=== PATIENT | female | born 1935 | race Asian ===

== ENCOUNTER 2016-09-04 22:57 | Inpatient (IN) | payer OTHER ==
[~2016-09-04] VITALS: Ht 154.9 cm; Wt 63.1 kg
--- NOTE | 2016-09-04 23:12 | Emergency Room Report ---
History of Present Illness General Chief Complaint: Dyspnea/Respdistress Source: Patient, EMS Present Illness HPI This is a 81-year-old female with history hypertension. She presents with chief shortness of breath the last 5 days. Worse with exertion. Worse with lying flat. Worse tonight. Clinically, she has pedal edema. But worse the last few days. Denies any chest pain. Per EMS, blood pressure was high. They gave her a breathing treatment, nitroglycerin, and oxygen. Never had this problem before. Allergies: Coded Allergies: No Known Allergies (Unverified , 09/04/16) Patient History Past Medical History: see triage record, old chart reviewed, HTN Past Surgical History: other Pertinent Family History: other Social History: Denies: smoking Now: No Immunizations: other Reviewed Nursing Documentation: PMH: Agreed, PSxH: Agreed Nursing Documentation-PMH Hx Hypertension: Yes Hx Asthma: Yes Review of Systems Eye: Denies: blurred vision, eye pain ENT: Denies: ear pain, nose congestion, throat swelling Respiratory: Reports: BERMUDEZ, shortness of breath, Denies: cough Cardiovascular: Denies: chest pain, palpitations Gastrointestinal: Denies: abdominal pain, diarrhea, nausea, vomiting Musculoskeletal: Denies: back pain, joint pain Skin: Denies: rash Neurological: Denies: headache, numbness Endocrine: Denies: increased thirst, increased urine Hematologic/Lymphatic: Denies: easy bruising All Other Systems: negative except mentioned in HPI Physical Exam Vital Signs Date Time Temp Pulse Resp B/P Pulse Ox O2 Delivery O2 Flow Rate FiO2 09/04/16 22:56 99.3 117 24 135/97 92 Room Air vitals with tachycardia and hypoxia Sp02 EP Interpretation: reviewed, abnormal General Appearance: mild distress Head: normocephalic, atraumatic Eyes: bilateral eye EOMI, bilateral eye PERRL ENT: hearing grossly normal, normal pharynx Neck: full range of motion, supple, no meningismus Respiratory: chest non-tender, decreased breath sounds, rales Cardiovascular #1: regular rate, rhythm, no murmur, tachycardia Gastrointestinal: normal bowel sounds, non tender, no mass, no organomegaly, no bruit, non-distended Musculoskeletal: back normal, normal range of motion, swelling - 4+ pitting edema Neurologic: alert, oriented x3 Psychiatric: mood/affect normal Skin: warm/dry Procedures Critical Care Time Critical Care Time Critical care is mandated in this patient who presented with NSTEMI and chf. Patient require my urgent intervention to attenuate the risks of metabolic collapse which may lead to cardiovascular collapse and . Critical care time is 35 minutes excluding any reportable procedure. Critical care time included evaluation, multiple reevaluation, looking at old charts, interpreting laboratory and diagnostic data, discussing case with patient and family and consultants, and charting. Medical Decision Making Diagnostic Impression: Primary Impression: NSTEMI, initial episode of care Additional Impressions: CHF (congestive heart failure) Qualified Codes: I50.9 - Heart failure, unspecified Hyperglycemia due to type 2 diabetes mellitus Qualified Codes: E11.65 - Type 2 diabetes mellitus with hyperglycemia Anemia Qualified Codes: D64.9 - Anemia, unspecified Hyponatremia Proteinuria Hypertension Qualified Codes: I10 - Essential (primary) hypertension ER Course Patient presents with acute CHF and fluid overloaded secondary to non-STEMI. No arrhythmia. Blood sugar is slightly elevated. According to EMS, blood pressure was systolic in the 170s. It is better now. Patient received nitroglycerin by EMS. I gave her aspirin, Lovenox, BRISA inhibitor, and Lasix here. She diuresed about a liter and felt better. At this point in time, she is unstable for transfer. We'll admit here for further workup. I discussed the case with Dr. Mcgraw who is covering for . Laboratory Tests Test 09/04/16 23:11 09/04/16 23:42 White Blood Count 8.4 K/UL (4.8-10.8) Red Blood Count 3.85 M/UL (4.20-5.40) L Hemoglobin 10.8 G/DL (12.0-16.0) L Hematocrit 33.7 % (37.0-47.0) L Mean Corpuscular Volume 88 FL (80-99) Mean Corpuscular Hemoglobin 28.0 PG (27.0-31.0) Mean Corpuscular Hemoglobin Concent 31.9 G/DL (32.0-36.0) L Red Cell Distribution Width 13.0 % (11.6-14.8) Platelet Count 156 K/UL (150-450) Mean Platelet Volume 6.2 FL (6.5-10.1) L Neutrophils (%) (Auto) 78.8 % (45.0-75.0) H Lymphocytes (%) (Auto) 11.8 % (20.0-45.0) L Monocytes (%) (Auto) 7.3 % (1.0-10.0) Eosinophils (%) (Auto) 1.2 % (0.0-3.0) Basophils (%) (Auto) 0.9 % (0.0-2.0) Prothrombin Time 12.0 SEC (9.30-11.50) H Prothromb Time International Ratio 1.2 (0.9-1.1) H Activated Partial Thromboplast Time 22 SEC (23-33) L Sodium Level 126 mEQ/L (135-145) L Potassium Level 4.3 mEQ/L (3.4-4.9) Chloride Level 88 mEQ/L (98-107) L Carbon Dioxide Level 19 mEQ/L (20-30) L Anion Gap 19 (5-15) H Blood Urea Nitrogen 20 mg/dL (7-23) Creatinine 1.0 mg/dL (0.5-0.9) H Estimat Glomerular Filtration Rate mL/min (>60) Glucose Level 182 mg/dL (74-106) H Calcium Level 8.4 mg/dL (8.6-10.2) L Total Bilirubin 0.4 mg/dL (0.0-1.2) Aspartate Amino Transf (AST/SGOT) 32 U/L (5-40) Alanine Aminotransferase (ALT/SGPT) 37 U/L (3-33) H Alkaline Phosphatase 58 U/L (35-104) Total Creatine Kinase 105 U/L (26-140) Creatine Kinase MB 9.9 ng/mL (< 3.8) H Creatine Kinase MB Relative Index 9.4 Troponin I 0.67 ng/mL (<=0.30) *H Pro-B-Type Natriuretic Peptide 48933 pg/mL (0-450) H Total Protein 6.2 g/dL (6.6-8.7) L Albumin 3.4 g/dL (3.5-5.2) L Globulin 2.8 g/dL Albumin/Globulin Ratio 1.2 (1.0-2.7) Urine Color Yellow Urine Appearance Clear Urine pH 6 (4.5-8.0) Urine Specific Martin 1.015 (1.005-1.035) Urine Protein 3+ (NEGATIVE) H Urine Glucose (UA) 1+ (NEGATIVE) H Urine Ketones Negative (NEGATIVE) Urine Occult Blood 2+ (NEGATIVE) H Urine Nitrite Negative (NEGATIVE) Urine Bilirubin Negative (NEGATIVE) Urine Urobilinogen Normal MG/DL (0.0-1.0) Urine Leukocyte Esterase Negative (NEGATIVE) Urine RBC 5-10 /HPF (0 - 2) H Urine WBC 0-2 /HPF (0 - 2) Urine Squamous Epithelial Cells Few /LPF (NONE/OCC) Urine Bacteria None /HPF (NONE) Lab Results Impression labs with elevated BNP and troponin EKG Diagnostic Results Rate: normal, tachycardiac Rhythm: NSR ST Segments: other - NSST changes Rhythm Strip Diag. Results EP Interpretation: yes Rate: 100 Rhythm: NSR, no PVC's, no ectopy Chest X-Ray Diagnostic Results EP Interpretation: Yes Findings: no consolidation, no pneumothorax, other - CM with chf Number of Views: 1 Last Vital Signs Date Time Temp Pulse Resp B/P Pulse Ox O2 Delivery O2 Flow Rate FiO2 09/04/16 22:56 99.3 117 24 135/97 92 Room Air Status: improved Disposition: ADMITTED INPATIENT Condition: Serious DEBBY BAE M.D. Sep 04, 2016 23:12
[2016-09-04 23:13] VITALS: BP 135/97
[2016-09-04] MEDS ORDERED: Enalaprilat 2.5mg/2ml Inj IV ONE (23:15)
[2016-09-04] MEDS ORDERED: Aspirin Baby 81mg ORAL ONE (23:15)
[2016-09-04] MEDS ORDERED: Enalaprilat 1.25mg/ml Inj IV ONE (23:15)
[2016-09-04 23:28] VITALS: BP 127/82
[2016-09-04 23:35] LABS: INR 1.2 (0.9-1.1)
[2016-09-04 23:44] LABS: BASOPHILS % (AUTO) 0.9 % (0.0-2.0); EOSINOPHILS % (AUTO) 1.2 % (0.0-3.0); LYMPHOCYTES % (AUTO) 11.8 % (20.0-45.0); MEAN CORPUSCULAR HGB CONC 31.9 G/DL (32.0-36.0); MEAN CORPUSCULAR VOLUME 88 FL (80-99); MEAN PLATELET VOLUME 6.2 FL (6.5-10.1); MONOCYTES % (AUTO) 7.3 % (1.0-10.0); NEUTROPHILS % (AUTO) 78.8 % (45.0-75.0); PLATELET COUNT 156 K/UL (150-450); RED BLOOD COUNT 3.85 M/UL (4.20-5.40); WHITE BLOOD COUNT 8.4 K/UL (4.8-10.8)
[2016-09-04 23:45] LABS: ALANINE AMINOTRANSFERASE 37 U/L (3-33); ALBUMIN/GLOBULIN RATIO 1.2 (1.0-2.7); ANION GAP 19 (5-15); ASPARTATE AMINO TRANSFERASE 32 U/L (5-40); CALCIUM 8.4 mg/dL (8.6-10.2); CARBON DIOXIDE 19 mEQ/L (20-30); CHLORIDE 88 mEQ/L (98-107); HEMOLYSIS 18; POTASSIUM 4.3 mEQ/L (3.4-4.9); SODIUM 126 mEQ/L (135-145); TOTAL PROTEIN 6.2 g/dL (6.6-8.7)
[2016-09-04 23:47] LABS: TROPONIN I 0.67 ng/mL (<=0.30)
[2016-09-04 23:56] LABS: CKMB 9.9 ng/mL (< 3.8)
[2016-09-04 23:58] LABS: APPEARANCE,URINE CLEAR; KETONES,URINE NEGATIVE (NEGATIVE); LEUKOCYTE ESTERASE ,URINE NEGATIVE (NEGATIVE); NITRITE,URINE NEGATIVE (NEGATIVE); PH,URINE 6 (4.5-8.0); PROTEIN,URINE 3+ (NEGATIVE); UROBILINOGEN,URINE NORMAL MG/DL (0.0-1.0)
[2016-09-05] VITALS (12 sets, daily range): BP systolic 96–130; BP diastolic 65–86
[2016-09-05] MEDS ORDERED: Enoxaparin 60mg Inj SUBQ ONE
[2016-09-05 00:24] LABS: SQUAMOUS EPITHELIAL CELL,UR FEW /LPF (NONE/OCC); WBC,URINE 0-2 /HPF (0 - 2)
[2016-09-05] MEDS ORDERED: ALBUTEROL2.5 MG/3 M INH (01:10)
[2016-09-05] MEDS: NovoLOG Insulin Flexpen SUBQ SCH ×4 (06:21→21:50)
[2016-09-05] MEDS: Metoprolol 25mg tab ORAL SCH ×2 (08:51→19:07)
[2016-09-05] MEDS: Enoxaparin 60mg Inj SUBQ SCH ×2 (08:52→21:49)
[2016-09-05 10:30] LABS: ALANINE AMINOTRANSFERASE 37 U/L (3-33); ALBUMIN/GLOBULIN RATIO 1.3 (1.0-2.7); ANION GAP 14 (5-15); ASPARTATE AMINO TRANSFERASE 31 U/L (5-40); CALCIUM 8.7 mg/dL (8.6-10.2); CARBON DIOXIDE 27 mEQ/L (20-30); CHLORIDE 90 mEQ/L (98-107); CREATININE 1.1 mg/dL (0.5-0.9); HEMOLYSIS 4; POTASSIUM 5.4 mEQ/L (3.4-4.9); SODIUM 131 mEQ/L (135-145); TOTAL PROTEIN 6.5 g/dL (6.6-8.7)
[2016-09-05 10:43] LABS: TROPONIN I 2.58 ng/mL (<=0.30)
--- NOTE | 2016-09-05 11:15 | Diagnostic Imaging Report ---
Indication: SOB Technique: One view of the chest Comparison: none Findings: There are bilateral pleural effusions, large. There is bilateral interstitial edema. The heart borders are obscured. Impression: Findings are compatible with congestive heart failure with large bilateral pleural effusions
[2016-09-05] MEDS: Nitroglycerin 2% oint pkt TOPIC SCH ×2 (14:15→19:07)
--- NOTE | 2016-09-05 15:04 | History & Physical ---
History and Physical History & Physicial dict AMI CHF DM bronchiectasis LVH, diastolic dysfcn pulm HTN lasix asa metoprolol cardiology called disc w briefcase sewer re transfer for coronary eval LINNEA Acosta Sep 05, 2016 15:04
[2016-09-05] MEDS ORDERED: Norco 10mg/325mg tab ORAL PRN (19:30)
--- NOTE | 2016-09-05 20:18 | History and Physical Report ---
DATE OF ADMISSION: 09/05/2016 CHIEF COMPLAINT: Short of breath. HISTORY OF PRESENT ILLNESS: The patient states she has been short of breath for about 5 days. It is worse with exertion and worse lying down flat. She has developed increasing edema over the past few weeks. She called her primary physician and was given albuterol. She has a nebulizer at home, which she uses for bronchiectasis. She has some chronic cough with sputum, but that was not worse recently. She had no chest pain. She does have a history of borderline hypertension, but no other risk factors for coronary disease. She is a nonsmoker. PAST MEDICAL HISTORY: Bronchiectasis and borderline hypertension. She does have a history of borderline diabetes, but is on no medication. ALLERGIES: None. MEDICATION: Albuterol. SOCIAL HISTORY: She does not drink or smoke. REVIEW OF SYSTEMS: Otherwise unremarkable. PHYSICAL EXAMINATION: GENERAL: The patient is alert and responds appropriately. VITAL SIGNS: Stable. She is well developed and well nourished. HEENT: The head is normocephalic. NECK: No jugular venous distention. CHEST: Few rales. CARDIAC: Rhythm is regular without murmur or gallop. ABDOMEN: Soft and nontender. Liver and spleen not enlarged. No ascites. EXTREMITIES: No clubbing or cyanosis. 3+ edema noted. NEUROLOGIC: No focal deficits. Cranial nerves are intact. LABORATORY STUDIES: Show the sodium of 126, BUN 20, creatinine 1.0. Blood sugar 182. CK-MB was high. Troponin was high at 0.67. Natriuretic peptide 46,700. On follow up, laboratory tests showed the troponin was 2.58 and sodium 131. Blood sugar 202. Urinalysis is negative. Coagulation parameters are normal. Hemogram showed some mild anemia with hemoglobin 10.8. IMPRESSIONS: 1. Acute myocardial infarction with congestive heart failure. 2. Congestive heart failure with diastolic dysfunction. 3. Pulmonary hypertension. 4. Diabetes not on treatment. PLAN: The patient was given diuretics and aspirin as well as a beta blanquita. Cardiology consultation has been requested. I believe she should be transferred as soon as possible for coronary evaluation. She is not a candidate for thrombolytic therapy given the long duration of her symptoms. Art Arroyo M.D. DR: /helena JOB#: [id number] CC: Art Arroyo M.D.; Fax#: [phone]
[2016-09-05] MEDS ORDERED: Nitroglycerin 50mg/250ml btl 250 ML IV SCH (22:00)
[2016-09-05] MEDS ORDERED: DuoNeb 0.5-3(2.5)mg/3ml neb HHN SCH (23:00)
[2016-09-06] VITALS (45 sets, daily range): BP systolic 91–119; BP diastolic 56–82
--- NOTE | 2016-09-06 00:48 | Consultation ---
DATE OF CONSULTATION: 09/05/2016 CARDIOLOGY CONSULTATION: CONSULTING PHYSICIAN: Shivam Wiggins M.D. REQUESTING PHYSICIAN: Art Arroyo M.D. REASON FOR CONSULTATION: Acute myocardial infarction. HISTORY OF PRESENT ILLNESS: This is a 81-year-old [place] female, who presented to the emergency room last evening with five days of progressive shortness of breath, chest tightness, and general malaise. Her initial troponin level was elevated at 0.67. She was noted to have radiographic evidence of congestive heart failure. Laboratory has evidence of an elevated natriuretic peptide assay. Pleural effusions were noted as well. The patient was admitted to the cardiac observation unit. This morning, her troponin level increased to 2.58 and the patient's symptoms have continued prompting this consultation. In addition, the patient had an echocardiogram done this morning revealing moderate pulmonary hypertension, pleural effusion, ejection fraction 50%, moderate mitral, and moderate tricuspid regurgitation. The patient is unaware of any prior history of myocardial infarction. PAST MEDICAL HISTORY: Hypertension, bronchiectasis, and type 2 diabetes mellitus. ALLERGIES: None. MEDICATIONS: Prior to admission, albuterol. SOCIAL HISTORY: Negative for smoking and alcohol use. REVIEW OF SYSTEMS: Otherwise, unremarkable. PHYSICAL EXAMINATION: GENERAL: She is in mild respiratory distress. VITAL SIGNS: Blood pressure is 114/82, pulse 80, respiratory rate 16, and afebrile. NECK: Jugular venous pressure is elevated. LUNGS: Diminished breath sounds and scattered rales. CARDIAC: Regular rhythm and rate. Normal S1 and S2. A 1/6 early systolic apical murmur. Point of maximum impulse of heart is displaced. ABDOMEN: Soft and nontender. EXTREMITIES: With 1+ dependent edema bilaterally. NEUROLOGIC: Nonfocal. DIAGNOSTIC DATA: EKG reveals low voltage and nonspecific ST-T wave changes. IMPRESSION: 1. Acute myocardial infarction. 2. Acute on chronic diastolic congestive heart failure. 3. Bilateral pleural effusions, left greater than right. 4. Mitral and tricuspid regurgitation. 5. Pulmonary hypertension. 6. Type 2 diabetes mellitus, diet controlled. 7. History of bronchiectasis. CONDITION: Critical. PROGNOSIS: Guarded. PLAN: 1. Intensive care unit transfer. 2. Having nitrate. 3. Diuresis. 4. Maximize anti-failure regimen. 5. Beta-blockade. 6. Full anticoagulation as well as anti-platelet therapy. 7. Check lipid panel. 8. We will need to transfer her to tertiary care facility for cardiac catheterization and assessment of coronary anatomy. Shivam Wiggins M.D. DR: Blas JOB#: [id number] CC:
[2016-09-06 05:38] LABS: EOSINOPHILS % (AUTO) 3.3 % (0.0-3.0); LYMPHOCYTES % (AUTO) 28.1 % (20.0-45.0); MEAN CORPUSCULAR HEMOGLOBIN 28.3 PG (27.0-31.0); MEAN CORPUSCULAR HGB CONC 32.7 G/DL (32.0-36.0); MEAN CORPUSCULAR VOLUME 86 FL (80-99); MEAN PLATELET VOLUME 6.7 FL (6.5-10.1); MONOCYTES % (AUTO) 11.5 % (1.0-10.0); NEUTROPHILS % (AUTO) 56.1 % (45.0-75.0); PLATELET COUNT 187 K/UL (150-450); RED BLOOD COUNT 3.75 M/UL (4.20-5.40); RED CELL DISTRIBUTION WIDTH 12.7 % (11.6-14.8); WHITE BLOOD COUNT 7.2 K/UL (4.8-10.8)
[2016-09-06 06:17] LABS: TROPONIN I 1.12 ng/mL (<=0.30)
[2016-09-06] MEDS: NovoLOG Insulin Flexpen SUBQ SCH ×4 (06:22→21:06)
[2016-09-06 06:54] LABS: CHOLESTEROL/HDL RATIO 2.6 (3.3-4.4)
[2016-09-06] MEDS: Metoprolol 25mg tab ORAL SCH ×2 (08:45→18:29)
[2016-09-06] MEDS: Enalapril 2.5mg tab ORAL SCH ×2 (08:46→20:56)
[2016-09-06] MEDS: Enoxaparin 60mg Inj SUBQ SCH (08:48)
[2016-09-06 09:10] LABS: ALANINE AMINOTRANSFERASE 34 U/L (3-33); ALBUMIN/GLOBULIN RATIO 1.3 (1.0-2.7); ANION GAP 18 (5-15); ASPARTATE AMINO TRANSFERASE 30 U/L (5-40); CALCIUM 8.4 mg/dL (8.6-10.2); CARBON DIOXIDE 23 mEQ/L (20-30); CHLORIDE 91 mEQ/L (98-107); CREATININE 1.2 mg/dL (0.5-0.9); HEMOLYSIS 3; SODIUM 132 mEQ/L (135-145); TOTAL PROTEIN 5.6 g/dL (6.6-8.7)
[2016-09-06] MEDS ORDERED: Nitroglycerin 50mg/250ml btl 250 ML IV SCH (11:30)
[2016-09-06] MEDS ORDERED: DuoNeb 0.5-3(2.5)mg/3ml neb HHN PRN (13:00)
--- NOTE | 2016-09-06 13:07 | Critical Care Progress Note ---
Assessment/Plan Assessment/Plan still SOB moved to ICU no chest pain no bed available for transfer to higher level of care troponin peaked at 2.58, down now BNP still 45,000 cont Lasix, metoprolol, BRISA, ASA, Lovenox called [facility] for transfer Critical Care - Subjective ROS Limited/Unobtainable: No Condition: unchanged IV Access: peripheral EKG Rhythm: Sinus Rhythm I&O: Intake and Output 09/05/16 09/06/16 19:00 07:00 Intake Total 240 ml 145 ml Output Total 700 ml 1725 ml Balance -460 ml -1580 ml Intake Oral 240 ml 120 ml IV Total 25 ml Output Urine Total 700 ml 1725 ml # Bowel Movements 1 Critical Care - Objective Last 24 Hour Vital Signs Date Time Temp Pulse Resp B/P Pulse Ox O2 Delivery O2 Flow Rate FiO2 09/06/16 12:30 71 12 103/67 100 Nasal Cannula 2.0 09/06/16 12:20 76 09/06/16 12:06 97.1 78 23 110/81 100 Nasal Cannula 2.0 09/06/16 11:30 72 18 111/71 98 Nasal Cannula 2.0 09/06/16 11:27 106/71 09/06/16 11:02 80 18 106/71 99 Nasal Cannula 2.0 09/06/16 10:37 78 17 115/74 99 Nasal Cannula 2.0 09/06/16 10:00 77 16 111/73 98 Nasal Cannula 2.0 09/06/16 09:27 90 18 110/73 100 Nasal Cannula 2.0 09/06/16 09:00 90 18 119/76 99 Nasal Cannula 2.0 09/06/16 08:46 109/56 09/06/16 08:45 87 109/56 09/06/16 08:30 88 18 109/56 99 Nasal Cannula 2.0 09/06/16 08:00 97.0 91 20 115/72 98 Nasal Cannula 2.0 09/06/16 08:00 81 09/06/16 07:30 77 16 111/72 100 Nasal Cannula 2.0 09/06/16 07:00 82 20 113/71 100 Nasal Cannula 2.0 09/06/16 06:30 80 22 111/76 98 Nasal Cannula 2.0 09/06/16 06:00 86 23 116/76 96 Nasal Cannula 2.0 09/06/16 05:30 80 22 118/74 98 Nasal Cannula 2.0 09/06/16 05:01 75 20 108/70 100 Nasal Cannula 2.0 09/06/16 04:30 75 20 94/70 100 Nasal Cannula 2.0 09/06/16 04:15 75 09/06/16 04:00 98.1 78 21 99/68 100 Nasal Cannula 2.0 09/06/16 03:30 76 18 102/77 100 Nasal Cannula 2.0 09/06/16 03:00 75 20 103/74 100 Nasal Cannula 2.0 09/06/16 02:30 78 19 107/73 100 Nasal Cannula 2.0 09/06/16 02:00 76 18 106/82 100 Nasal Cannula 2.0 09/06/16 01:30 80 18 103/73 100 Nasal Cannula 2.0 09/06/16 01:00 82 18 97/64 100 Nasal Cannula 2.0 09/06/16 00:30 84 20 109/72 100 Nasal Cannula 2.0 09/06/16 00:27 84 09/06/16 00:00 97.8 82 20 106/74 100 Nasal Cannula 2.0 09/06/16 00:00 81 18 110/79 100 Nasal Cannula 2.0 09/05/16 23:30 82 19 111/74 98 Nasal Cannula 2.0 09/05/16 23:00 98 Nasal Cannula 2.0 28 09/05/16 23:00 Nasal Cannula 2.0 28 09/05/16 23:00 84 22 104/77 98 Nasal Cannula 2.0 09/05/16 22:47 114/82 09/05/16 22:26 81 09/05/16 22:25 97.7 80 16 114/82 97 Nasal Cannula 2.0 09/05/16 20:00 92 09/05/16 20:00 97.0 89 20 128/86 96 Nasal Cannula 2.0 09/05/16 19:07 130/86 09/05/16 19:07 84 130/86 09/05/16 19:05 130/86 09/05/16 17:11 97 Nasal Cannula 2.0 28 09/05/16 17:11 Nasal Cannula 2.0 28 09/05/16 17:11 84 20 Room Air 09/05/16 16:00 98.1 88 20 122/81 96 Nasal Cannula 2.0 09/05/16 16:00 86 09/05/16 14:15 96/68 Status: awake Lungs: decreased breath sounds Heart: normal rate Abdomen: non-tender Extremities: edema - 2+ Accucheck: LINNEA MORILLO Sep 06, 2016 13:07
[2016-09-06] MEDS: Nitroglycerin 2% oint pkt TOPIC SCH ×2 (19:00→23:54)
--- NOTE | 2016-09-06 21:58 | Progress Note ---
DATE: 09/06/2016 CARDIOLOGY PROGRESS NOTE SUBJECTIVE: The patient's condition remains critical. She was transferred to the intensive care unit by me early this morning. She had persistent shortness of breath and worsening signs of congestive heart failure. Her natriuretic peptide levels have increased as well to almost 46,000. The patient was started on intravenous nitrates and continued on IV diuretics as well as started on an angiotensin-converting enzyme inhibitor. Today this afternoon, repeat evaluation performed. She is somewhat improved, but still short of breath. She is sitting up in bed. OBJECTIVE: VITAL SIGNS: Blood pressure 104/62, pulse 87, and respirations 19. NECK: Jugular venous pressure elevated to 10. LUNGS: Diminished breath sounds and rales. CARDIAC: Regular rhythm and rate. Normal S1 and S2. A 1/6 systolic murmur at apex. ABDOMEN: Soft. EXTREMITIES: Trace edema. LABORATORY DATA: Troponin has decreased to 1.12. IMPRESSION: 1. Acute myocardial infarction. 2. Acute on chronic diastolic congestive heart failure. 3. Pleural effusion. 4. Acute on chronic kidney insufficiency with diuresis. 5. Mild protein-calorie malnutrition. 6. Anemia. 7. Pulmonary hypertension. 8. Paroxysmal bronchospasm. PLAN: 1. Continue cautious diuresis. 2. Replace potassium as needed. 3. Monitor cardiorenal parameters. 4. Maintain beta-blockade. 5. Off intravenous nitrates as clinical condition improves. 6. Titrate angiotensin-converting enzyme inhibitor. 7. Hold statin therapy in view of LDL goal of 70, which should be readdressed once coronary anatomy has been defined. The patient is awaiting transfer to a tertiary care facility where her cardiac catheterization can be performed. She is aware of this plan and agrees. Shivam Wiggins M.D. DR: JEFF JOB#: [id number] CC:
[2016-09-07] VITALS (24 sets, daily range): BP systolic 92–129; BP diastolic 40–78
[2016-09-07] MEDS: Nitroglycerin 2% oint pkt TOPIC SCH ×4 (06:22→23:59)
[2016-09-07] MEDS: NovoLOG Insulin Flexpen SUBQ SCH ×4 (06:24→21:06)
[2016-09-07] MEDS ORDERED: NOVOLOG100 UNITS1 SUBQ (08:36)
[2016-09-07] MEDS ORDERED: ENALAPRIL MALE2.5 MG ORAL (08:36)
[2016-09-07] MEDS ORDERED: ASPIRIN325 MG ORAL (08:36)
[2016-09-07] MEDS ORDERED: NITRO-BID1 GM TOPIC (08:36)
[2016-09-07] MEDS ORDERED: LOPRESSOR25 M1 ORAL (08:36)
[2016-09-07] MEDS ORDERED: DEMADEX10 MG IV (08:36)
[2016-09-07] MEDS ORDERED: DUONEB 0.5-3(2.53 ML HHN (08:36)
[2016-09-07] MEDS ORDERED: LOVENOX10 M1 SUBQ (08:36)
--- NOTE | 2016-09-07 08:42 | Discharge Summary ---
Discharge Summary Hospital Course Date of Admission Sep 05, 2016 at 01:14 Date of Discharge 09/07/16 Admitting Diagnosis nstemi, chf HPI Nelson Keys is a 81 year old female who was admitted on Sep 05, 2016 at 01:[address] Elevated Myocardial Infarction,Congestive Consultations cardiology Procedures echo Hospital Course admitted w SOB, hx of bronchiectasis troponin elevated with max 2.58, now trending down echo w EF 50% and pulm HTN CXR w CHF and effusions improved with meds listed below VS stable throughout some SOB yesterday possibly due to ischemia and improved with NTG drip, now changed to topical transfer to [facility] for cath 1. Acute myocardial infarction. 2. Acute on chronic diastolic congestive heart failure. 3. Pleural effusion. 4. Acute on chronic kidney insufficiency with diuresis. 5. Mild protein-calorie malnutrition. 6. Anemia. 7. Pulmonary hypertension. 8. Bronchiectasis 9. Mild DM Discharge Condition Upon Discharge: stable Discharge Disposition Patient was discharged to [facility] Discharge Diagnoses: (1) NSTEMI, initial episode of care (2) CHF (congestive heart failure) (3) Hypertension (4) Hyperglycemia due to type 2 diabetes mellitus (5) Hyponatremia (6) Anemia LINNEA PATINO Sep 07, 2016 08:42
[2016-09-07] MEDS: Enalapril 2.5mg tab ORAL SCH ×2 (08:46→21:06)
[2016-09-07] MEDS: Metoprolol 25mg tab ORAL SCH ×2 (08:47→18:04)
[2016-09-07] MEDS: Enoxaparin 60mg Inj SUBQ SCH (08:53)
--- NOTE | 2016-09-07 12:12 | Diagnostic Imaging Report ---
APPROVED REPORT CPT Code: 26984 Present Symptoms Comments: Chest pain BILATERAL: Imaging reveals a patent deep venous system bilaterally. There is no evidence of thrombus within the femoral, popliteal or tibial segments. The greater saphenous veins are also within normal limits. Doppler indicates normal spontaneous flow within these segments.
--- NOTE | 2016-09-07 15:12 | Cardiology Report ---
APPROVED REPORT EKG Measurement Heart [id number] AK [id number] Sinus rhythm with occasional premature ventricular complexes Low voltage QRS T wave abnormality, consider lateral ischemia Abnormal ECG
--- NOTE | 2016-09-07 15:13 | Cardiology Report ---
APPROVED REPORT EKG Measurement Heart [id number] Normal sinus rhythm Low voltage QRS T wave abnormality, consider lateral ischemia Abnormal ECG
--- NOTE | 2016-09-07 15:17 | Cardiology Report ---
APPROVED REPORT EKG Measurement Heart [id number] [place] [id number] Normal sinus rhythm T wave abnormality, consider lateral ischemia Prolonged QT Abnormal ECG
--- NOTE | 2016-09-07 15:40 | Cardiology Report ---
APPROVED REPORT EXAM: Two-dimensional and M-mode echocardiogram with Doppler and color Doppler. INDICATION Congestive Heart Failure M-Mode DIMENSIONS IVSd1.3 (0.7-1.1cm)Left Atrium (MM)3.6 (1.6-4.0cm) LVDd5.0 (3.5-5.6cm)Aortic Root2.6 (2.0-3.7cm) PWd0.8 (0.7-1.1cm)Aortic Cusp Exc.1.5 (1.5-2.0cm) LVDs3.1 (2.5-4.0cm) PWs1.1 cm Normal left ventricular chamber size, systolic function and wall motion. Left ventricular ejection fraction estimated to be 50%. Moderate left ventricular hypertrophy. Large posterior pleural effusion. Right cardiac chamber sizes are within normal limits. Mild left atrial enlargement by 2D. Mild focal aortic valve sclerosis with adequate cusp excursion Thickened mitral valve leaflets with normal excursion. Mild mitral annulus and aortic root calcification. Pulmonic valve not well visualized. Normal tricuspid valve structure. IVC dilated at 2.4cm with minimal physiologic collapse. A color flow and spectral Doppler study was performed and revealed: Mild aortic regurgitation. Moderate mitral regurgitation. Mitral inflow velocities indicates possible pseudo normalization pattern implying significant left ventricular diastolic dysfunction Moderate tricuspid regurgitation. Tricuspid systolic velocities suggests peak right ventricular systolic pressure of 47 mmHg Consistent with moderate pulmonary hypertension.
[2016-09-08] VITALS (13 sets, daily range): BP systolic 102–134; BP diastolic 58–73
--- NOTE | 2016-09-08 00:48 | Progress Note ---
DATE: 09/07/2016 CARDIOLOGY PROGRESS NOTE: SUBJECTIVE: The patient's condition remains critical. Prognosis remains guarded. She is in the intensive care unit. She has not had chest pain. She has less shortness of breath. She is now off IV nitroglycerin and is on topical nitrates as well as intravenous diuretics and multidrug antianginal regimen. OBJECTIVE: VITAL SIGNS: Blood pressure is 101/65, pulse rate 81, and respiratory rate 18. NECK: Supple. Jugular venous pressure is slightly elevated. LUNGS: With diminished breath sounds and few rales. CARDIAC: Regular rhythm and rate. Normal S1 and S2 with a 1/6 systolic apical murmur. ABDOMEN: Soft and nontender. EXTREMITIES: With trace dependent edema. LABORATORY DATA: Laboratories are pending. IMPRESSION: 1. Acute myocardial infarction. 2. Bronchiectasis. 3. Pulmonary hypertension. 4. Acute on chronic diastolic congestive heart failure. 5. Pleural effusion. PLAN: 1. Continue diuresis. 2. Followup laboratory studies. 3. Antianginal therapy including nitrates and anti-platelet drugs. 4. Awaiting transfer to tertiary care facility for coronary angiography and assessment of coronary anatomy. 5. Consideration for further pulmonary workup. 6. She will follow if no signs of significant coronary artery disease are noted. 7. Full anticoagulation remains in place at this time. Shivam Wiggins M.D. DR: Blas JOB#: [id number] CC:
[2016-09-08 04:25] LABS: BASOPHILS % (AUTO) 1.1 % (0.0-2.0); EOSINOPHILS % (AUTO) 8.5 % (0.0-3.0); LYMPHOCYTES % (AUTO) 22.6 % (20.0-45.0); MEAN CORPUSCULAR HEMOGLOBIN 27.4 PG (27.0-31.0); MEAN CORPUSCULAR HGB CONC 31.8 G/DL (32.0-36.0); MEAN CORPUSCULAR VOLUME 86 FL (80-99); MEAN PLATELET VOLUME 6.8 FL (6.5-10.1); MONOCYTES % (AUTO) 9.5 % (1.0-10.0); NEUTROPHILS % (AUTO) 58.3 % (45.0-75.0); PLATELET COUNT 216 K/UL (150-450); RED BLOOD COUNT 4.25 M/UL (4.20-5.40); WHITE BLOOD COUNT 6.1 K/UL (4.8-10.8)
[2016-09-08 04:40] LABS: ALANINE AMINOTRANSFERASE 27 U/L (3-33); ANION GAP 16 (5-15); ASPARTATE AMINO TRANSFERASE 25 U/L (5-40); CALCIUM 8.9 mg/dL (8.6-10.2); CARBON DIOXIDE 30 mEQ/L (20-30); CHLORIDE 87 mEQ/L (98-107); CREATININE 1.4 mg/dL (0.5-0.9); HEMOLYSIS 3; SODIUM 133 mEQ/L (135-145); TOTAL PROTEIN 5.8 g/dL (6.6-8.7)
[2016-09-08 04:52] LABS: TROPONIN I 1.02 ng/mL (<=0.30)
[2016-09-08] MEDS: NovoLOG Insulin Flexpen SUBQ SCH ×3 (06:04→17:03)
[2016-09-08] MEDS: Nitroglycerin 2% oint pkt TOPIC SCH ×3 (06:04→18:43)
[2016-09-08] MEDS: Enalapril 2.5mg tab ORAL SCH (08:28)
[2016-09-08] MEDS: Metoprolol 25mg tab ORAL SCH (08:28)
[2016-09-08] MEDS: Enoxaparin 60mg Inj SUBQ SCH (09:16)
[2016-09-08] MEDS ORDERED: Enoxaparin 60mg Inj SUBQ SCH (10:30)
[2016-09-08] MEDS ORDERED: Nitroglycerin 2% oint pkt TOPIC SCH (10:30)
[2016-09-08 10:41] LABS: CHOLESTEROL/HDL RATIO 3.6 (3.3-4.4)
[2016-09-08 13:00] LABS: BASOPHILS % (AUTO) 0.9 % (0.0-2.0); EOSINOPHILS % (AUTO) 6.8 % (0.0-3.0); LYMPHOCYTES % (AUTO) 22.6 % (20.0-45.0); MEAN CORPUSCULAR HEMOGLOBIN 27.4 PG (27.0-31.0); MEAN CORPUSCULAR HGB CONC 31.6 G/DL (32.0-36.0); MEAN CORPUSCULAR VOLUME 86 FL (80-99); MEAN PLATELET VOLUME 6.6 FL (6.5-10.1); MONOCYTES % (AUTO) 8.2 % (1.0-10.0); NEUTROPHILS % (AUTO) 61.5 % (45.0-75.0); PLATELET COUNT 216 K/UL (150-450); RED BLOOD COUNT 4.32 M/UL (4.20-5.40); RED CELL DISTRIBUTION WIDTH 12.9 % (11.6-14.8); WHITE BLOOD COUNT 6.5 K/UL (4.8-10.8)
[2016-09-08] MEDS ORDERED: DuoNeb 0.5-3(2.5)mg/3ml neb HHN PRN (13:00)
[2016-09-08 13:16] LABS: TROPONIN I 1.23 ng/mL (<=0.30)
[2016-09-08] MEDS ORDERED: 1/2 NS 1000ml IV ONE (14:01)
[2016-09-08] MEDS ORDERED: Tubing IV Secondary IV ONE (14:01)
--- NOTE | 2016-09-08 14:38 | General Progress Note ---
Assessment/Plan Status: progressing Assessment/Plan Finally accepted to [facility] and bed available today thanks to Dr Wiggins for his efforts to get her transferred disc w him and case assistant feeling less SOB, edema resolved admitted w SOB, hx of bronchiectasis troponin elevated with max 2.58, now trending down echo w EF 50% and pulm HTN CXR w CHF and effusions improved with meds listed below VS stable throughout some SOB yesterday possibly due to ischemia and improved with NTG drip, now changed to topical transfer to [facility] for cath 1. Acute myocardial infarction. 2. Acute on chronic diastolic congestive heart failure. 3. Pleural effusion. 4. Acute on chronic kidney insufficiency with diuresis. 5. Mild protein-calorie malnutrition. 6. Anemia. 7. Pulmonary hypertension. 8. Bronchiectasis 9. Mild DM Subjective Cardiovascular: Denies: chest pain Respiratory: Reports: SOB with excertion Allergies: Coded Allergies: No Known Allergies (Unverified , 09/04/16) Objective Last 24 Hour Vital Signs Date Time Temp Pulse Resp B/P Pulse Ox O2 Delivery O2 Flow Rate FiO2 09/08/16 12:39 102/58 09/08/16 11:20 97.7 72 18 102/58 97 Nasal Cannula 2.0 09/08/16 09:00 74 18 120/64 100 Nasal Cannula 2.0 09/08/16 08:28 134/67 09/08/16 08:28 83 134/67 09/08/16 08:00 73 09/08/16 08:00 97.3 79 16 134/67 99 Nasal Cannula 2.0 09/08/16 07:30 Nasal Cannula 2.0 28 09/08/16 07:30 99 Nasal Cannula 2.0 28 09/08/16 07:30 74 18 Nasal Cannula 2.0 28 09/08/16 07:00 74 18 124/66 99 Nasal Cannula 2.0 09/08/16 06:04 111/65 09/08/16 06:00 72 18 111/65 99 Nasal Cannula 2.0 09/08/16 05:00 73 18 113/64 99 Nasal Cannula 2.0 09/08/16 04:00 97.6 70 18 107/61 99 Nasal Cannula 2.0 09/08/16 04:00 70 09/08/16 03:00 75 18 110/65 99 Nasal Cannula 2.0 09/08/16 02:00 80 18 104/61 99 Nasal Cannula 2.0 09/08/16 01:00 77 18 116/69 99 Nasal Cannula 2.0 09/08/16 00:00 97.8 82 18 102/73 99 Nasal Cannula 2.0 09/08/16 00:00 82 09/07/16 23:59 106/63 09/07/16 23:03 91 18 106/63 99 Nasal Cannula 2.0 09/07/16 22:00 81 18 101/65 100 Nasal Cannula 2.0 09/07/16 21:06 105/75 09/07/16 21:00 78 18 105/75 98 Nasal Cannula 2.0 09/07/16 20:00 98.0 82 20 112/74 100 Nasal Cannula 2.0 09/07/16 20:00 93 09/07/16 19:59 84 18 Nasal Cannula 2.0 28 09/07/16 19:58 Nasal Cannula 2.0 28 09/07/16 19:58 98 Nasal Cannula 2.0 28 09/07/16 19:00 81 20 109/68 99 Nasal Cannula 2.0 09/07/16 18:04 110/62 09/07/16 18:04 87 110/62 09/07/16 18:00 88 20 110/62 99 Nasal Cannula 2.0 09/07/16 17:00 82 19 113/71 99 Nasal Cannula 2.0 09/07/16 16:00 97.1 77 20 101/60 99 Nasal Cannula 2.0 09/07/16 16:00 77 09/07/16 15:02 73 18 92/54 100 Nasal Cannula 2.0 Intake and Output 09/07/16 09/08/16 19:00 07:00 Intake Total 480 ml Output Total 1410 ml 1550 ml Balance -930 ml -1550 ml Intake Oral 480 ml Output Urine Total 1410 ml 1550 ml # Bowel Movements 2 Laboratory Tests 09/08/16 03:30: White Blood Count 6.1, Red Blood Count 4.25, Hemoglobin 11.7L, Hematocrit 36.7L , Mean Corpuscular Volume 86, Mean Corpuscular Hemoglobin 27.4, Mean Corpuscular Hemoglobin Concent 31.8L, Red Cell Distribution Width 13.0, Platelet Count 216, Mean Platelet Volume 6.8, Neutrophils (%) (Auto) 58.3, Lymphocytes (%) (Auto) 22.6, Monocytes (%) (Auto) 9.5, Eosinophils (%) (Auto) 8.5H, Basophils (%) (Auto) 1.1, Sodium Level 133L, Potassium Level 4.0, Chloride Level 87L, Carbon Dioxide Level 30, Anion Gap 16H, Blood Urea Nitrogen 29H, Creatinine 1.4H, Estimat Glomerular Filtration Rate , Glucose Level 112H, Calcium Level 8.9, Total Bilirubin 0.4, Aspartate Amino Transf (AST/SGOT) 25, Alanine Aminotransferase (ALT/SGPT) 27, Alkaline Phosphatase 55, Troponin I 1.02 *H, Pro-B-Type Natriuretic Peptide 76173M, Total Protein 5.8L, Albumin 3.0L, Globulin 2.8, Albumin/Globulin Ratio 1.0, Triglycerides Level 84, Cholesterol Level 143, LDL Cholesterol 86, HDL Cholesterol 40, Cholesterol/HDL Ratio 3.6 09/08/16 12:50: White Blood Count 6.5, Red Blood Count 4.32, Hemoglobin 11.8L, Hematocrit 37.4, Mean Corpuscular Volume 86, Mean Corpuscular Hemoglobin 27.4, Mean Corpuscular Hemoglobin Concent 31.6L, Red Cell Distribution Width 12.9, Platelet Count 216, Mean Platelet Volume 6.6, Neutrophils (%) (Auto) 61.5, Lymphocytes (%) (Auto) 22.6, Monocytes (%) (Auto) 8.2, Eosinophils (%) (Auto) 6.8H, Basophils (%) (Auto ) 0.9, Troponin I 1.23*H Height (Feet): 5 Height (Inches): 1.00 Weight (Pounds): 139 General Appearance: no apparent distress Cardiovascular: normal rate Respiratory/Chest: lungs clear Abdomen: non tender Edema: no edema noted LINNEA Montgomery Sep 08, 2016 14:38
[2016-09-08] MEDS ORDERED: Metoprolol 25mg tab ORAL SCH (18:00)
[2016-09-08] MEDS ORDERED: Enalapril 2.5mg tab ORAL SCH (21:00)
--- NOTE | 2016-09-08 23:38 | Progress Note ---
DATE: 09/08/2016 CARDIOLOGY PROGRESS NOTE: Time Of Evaluation: 1:00 p.m. SUBJECTIVE: The patient has no chest pain. She does have short of breath with activity out of bed. Monitored rhythm sinus with atrial ectopy. OBJECTIVE: VITAL SIGNS: Blood pressure is 102/58, pulse 71, respiratory rate 18, and no fevers. NECK: Jugular venous pressure elevated. LUNGS: With diminished breath sounds and few rales. CARDIAC: Regular rhythm rate. Normal S1, S2. A 1/6 systolic murmur in the lower left sternal border. ABDOMEN: Soft. EXTREMITIES: Trace edema. LABORATORY AND DIAGNOSTIC DATA: Troponin level 1.2. Hemoglobin 11.8. Pro-natriuretic peptide remains elevated at over 30,000. LDL cholesterol is 86. BUN 29 and creatinine 1.4. IMPRESSION: 1. Acute myocardial infarction. 2. Pleural effusion. 3. Acute on chronic diastolic congestive heart failure. 4. Bronchiectasis. 5. Mild protein calorie malnutrition. 6. Acute on chronic renal failure. PLAN: Continue cautious diuresis. Monitor renal function. Cautious use of angiotensin-converting enzyme inhibitors. Continue anti-platelet therapy. Full anticoagulation. I have spoken with the transfer center at [facility] and the urgency of coronary angiography with persistent signs of ischemia and heart failure and the patient will be transferred today to complete that course of therapy. Shivam Wiggins M.D. DR: Norberto JOB#: [id number] CC:
[2016-09-09] MEDS ORDERED: Enoxaparin 60mg Inj SUBQ SCH (09:00)
--- NOTE | 2016-09-11 08:38 | Cardiology Report ---
APPROVED REPORT EKG Measurement Heart [id number] Normal sinus rhythm Low voltage QRS Cannot rule out Anterior infarct, age undetermined Abnormal ECG
== END 2016-09-08 22:05 | disposition short-term general hospital (02) | DRG 280 ==
LOC: EDBD 22:57 → EMR 23:20 → 2E 09-05 01:14 → EDBEDREQ 09-05 01:25 → 2E 09-05 14:16 → ICU 09-05 21:54 → 2E 09-08 10:06
DX: I21.4 Non-ST elevation (NSTEMI) myocardial infarction (principal); I50.33 Acute on chronic diastolic (congestive) heart failure; E11.22 Type 2 diabetes mellitus with diabetic chronic kidney disease; E11.65 Type 2 diabetes mellitus with hyperglycemia; I27.2 Other secondary pulmonary hypertension; E44.1 Mild protein-calorie malnutrition; E87.1 Hypo-osmolality and hyponatremia; J47.9 Bronchiectasis, uncomplicated; R03.0 Elevated blood-pressure reading, without diagnosis of hypertension; I08.1 Rheumatic disorders of both mitral and tricuspid valves; D64.9 Anemia, unspecified; Z68.26 Body mass index [BMI] 26.0-26.9, adult; N18.9 Chronic kidney disease, unspecified
CPT/HCPCS: 36415; 71010; 80053; 80061; 81003; 82550; 82553; 82962; 83880; 84443; 84484; 85025; 85610; 85730; 93005; 93306; 93970; 94664; 94760; J1815; J7620; J8499